=== PATIENT | female | born 1960 | race Caucasian/White ===

== ENCOUNTER 2016-07-01 20:57 | Emergency (ER) | payer BC ==
--- NOTE | 2016-07-01 22:00 | EDM.PDOC ---
ED HPI GENERAL MEDICAL PROBLEM - General Chief Complaint: General Stated Complaint: BLOOD PRESSURE Time Seen by Provider: 07/01/16 21:44 Source of Information: Reports: Patient, RN notes reviewed History Limitations: Reports: No limitations - History of Present Illness INITIAL COMMENTS - FREE TEXT/NARRATIVE: 56-year-old female presents emergency department today concerned about blood pressure her blood pressure was systolically 170 at home at which time she felt dizzy lightheaded did not feel well reports the emergency department for further evaluation at this time her blood pressure has returned to normal range in all of her symptoms have resolved Generalized Pain Score (Numeric/FACES): 4 - Related Data Allergies Allergy/AdvReac Type Severity Reaction Status Date / Time cyclobenzaprine Allergy Anxiety Verified 07/01/16 21:15 [From Flexeril] Iodinated Contrast Media - Allergy Airway Verified 07/01/16 21:14 Oral and Tightness [Iodinated Contrast Media - IV Dye] Home Meds: Home Meds Albuterol Sulfate [Proair Hfa] 2 puff INH Q4H PRN 07/01/16 [History] Aspirin [Adult Low Dose Aspirin EC] 81 mg PO DAILY 07/01/16 [History] Calcium Carbonate/Vitamin D3 [Calcium 600 + Vit D 200] 1 each PO DAILY 07/01/16 [History] Cholecalciferol (Vitamin D3) [Vitamin D3] 1,000 units PO DAILY 07/01/16 [History ] Fluticasone/Salmeterol [Advair Diskus 100-50] 1 puff INH DAILY 07/01/16 [History ] Gabapentin [Neurontin] 100 mg PO BID 07/01/16 [History] Gabapentin [Neurontin] 200 mg PO BEDTIME 07/01/16 [History] Magnesium Oxide 400 mg PO DAILY 07/01/16 [History] Multivitamin [Multi-Day Vitamins] 1 tab PO DAILY 07/01/16 [History] Naproxen [Naprosyn] 1 tab PO BID 07/01/16 [History] [place]-3/DHA/Epa/Fish Oil [Fish Oil 1,000 mg Softgel] 1 tab PO DAILY 07/01/16 [ History] Topiramate [Topamax] 100 mg PO BID 07/01/16 [History] Vit E Ac/Cu/Se/Znox/Pyg/Saw P [Prostamen Softgel] 1 each PO DAILY 07/01/16 [ History] traMADol HCl [Ultram] 50 mg PO Q6H PRN 07/01/16 [History] traMADol [Ultram] 1 tab PO Q6H 07/01/16 [History] Past Medical History HEENT History: Reports: Impaired vision Cardiovascular History: Reports: Hypertension 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 Musculoskeletal Surgical History: Reports: Hip replacement, Knee replacement, Other (see below) Other Musculoskeletal Surgeries/Procedures:: Total of 9 knee surgeries. Social & Family History - Tobacco Use Smoking Status *Q: Never Smoker Second Hand Smoke Exposure: No - Caffeine Use Caffeine Use: Reports: Coffee, Tea - Recreational Drug Use Recreational Drug Use: No ED ROS GENERAL - Review of Systems Review Of Systems: See Below Constitutional: Reports: no symptoms Respiratory: Reports: No Symptoms Cardiovascular: Reports: Chest pain GI/Abdominal: Reports: No symptoms : Reports: no symptoms Musculoskeletal: Reports: no symptoms Skin: Reports: no symptoms Neurological: Reports: Dizziness ED EXAM, GENERAL - Physical Exam Exam: See Below Free Text/Narrative:: General:female, not in any distress, alert and oriented x3 HEENT: head is atraumatic normocephalic, eyes pupils equal round reactive to light, sclera clear no conjunctivitis appreciated. Ears tympanic membranes clear and [place] landmarks and light reflex are present bilaterally canals are clear. Nose no septal deviation, nares are clear, no blood present. Mouth mucosa is moist and pink no erythema or exudate noted in soft palate, tongue is midline uvula is midline, dentition is intact. Neck: Supple no thyromegaly no tracheal deviation. Nodes: Cervical nodes subclavicular nodes nontender no palpable lymphadenopathy noted. Lungs: clear to auscultation bilaterally with symmetrical respirations, no adventitious noise appreciated. CV: Regular rate and rhythm S1 and S2 appreciated no murmurs rubs or gallops noted. Abdomen: Soft, nontender, no palpable masses or organomegaly appreciated, no distention no guarding bowel sounds are present, . Neuro: Cranial nerves II through XII grossly intact Skin: Warm and dry, intact Extremities: No lower extremity edema appreciated, Course - Vital Signs Last Recorded V/S: Last Vital Signs Temp 99.2 F 07/01/16 22:49 Pulse 114 H 07/01/16 22:49 Resp 16 07/01/16 22:49 BP 145/88 H 07/01/16 22:49 Pulse Ox 98 07/01/16 22:49 - Orders/Labs/Meds Orders: Active Orders 24 hr Category Date Time Status Cardiac Monitoring [RC] .As Directed Care 07/01/16 21:58 Active EKG Documentation Completion [RC] ASDIRECTED Care 07/01/16 21:44 Active Chest 2V [CR] Stat Exams 07/01/16 21:58 Taken EKG 12 Lead [EK] Stat Ther 07/01/16 21:44 Ordered Labs: Laboratory Tests 07/01/16 07/01/16 Range/Units 22:09 22:09 WBC 7.3 (4.5-11.0) K/uL RBC 4.32 (3.30-5.50) M/uL Hgb 12.7 (12.0-15.0) g/dL Hct 39.4 (36.0-48.0) % MCV 91 (80-98) fL MCH 29 (27-31) pg MCHC 32 (32-36) % Plt Count 326 (150-400) K/uL Neut % (Auto) 71 H (36-66) % Lymph % (Auto) 17 L (24-44) % [place] % (Auto) 9 H (2-6) % Eos % (Auto) 2 (2-4) % Baso % (Auto) 1 (0-1) % Sodium 145 (140-148) mmol/L Potassium 3.8 (3.6-5.2) mmol/L Chloride 107 (100-108) mmol/L Carbon Dioxide 24 (21-32) mmol/L Anion Gap 14.0 (5.0-14.0) mmol/L BUN 18 (7-18) mg/dL Creatinine 1.0 (0.6-1.0) mg/dL Est Cr Clr Drug Dosing 56.98 mL/min Estimated GFR (MDRD) 57 L (>60) Glucose 95 (74-106) mg/dL Calcium 8.9 (8.5-10.1) mg/dL Total Bilirubin 0.3 (0.2-1.0) mg/dL AST 22 (15-37) U/L ALT 29 (12-78) U/L Alkaline Phosphatase 94 (46-116) U/L CK-MB (CK-2) 1.5 (0-3.6) mg/mL Troponin I < 0.017 (0.000-0.056) ng/mL Total Protein 7.3 (6.4-8.2) g/dL Albumin 4.0 (3.4-5.0) g/dL Globulin 3.3 (2.3-3.5) g/dL Albumin/Globulin Ratio 1.2 (1.2-2.2) Departure - Departure Time of Disposition: 22:55 Disposition: DC/Tfer to Hospice - Home 50 Condition: good Clinical Impression: Hypertensive urgency Forms: ED Department Discharge Additional Instructions: Please followup with your primary care provider in 3 -5 days if not better, please call return to the emergency department with worsening of symptoms. - My Orders Last 24 Hours: My Active Orders 07/01/16 21:44 EKG Documentation Completion [RC] ASDIRECTED EKG 12 Lead [EK] Stat 07/01/16 21:58 Cardiac Monitoring [RC] .As Directed Chest 2V [CR] Stat - Assessment/Plan Last 24 Hours: My Active Orders 07/01/16 21:44 EKG Documentation Completion [RC] ASDIRECTED EKG 12 Lead [EK] Stat 07/01/16 21:58 Cardiac Monitoring [RC] .As Directed Chest 2V [CR] Stat Plan: Assessment Acuity = acute Site and laterality = hypertensive urgency Etiology = unclear etiology Manifestations = none Location of injury = home Lab values = CBC, CMP, troponin, EKG, chest x-ray are unremarkable Plan she has been asymptomatic here no treatment was provided did review lab work chest x-ray and EKG results with her her plans follow up with her primary care to 5 days if no improvement Patient was in agreement with the plan all questions were answered, they were instructed to return to the emergency department or call for worsening symptoms. This note was dictated using [employer] voice recognition software please call with any questions.
[2016-07-01 22:49] VITALS: BP 145/88
--- NOTE | 2016-07-02 09:23 | CR ---
Chest 2V INDICATION: Chest Pain FINDINGS: Comparison 11/04/2009. Heart size normal. Lungs are clear. Hypertrophic changes thoracic sp ine. Chest otherwise negative.
== END 2016-07-01 23:03 | disposition hospice, home (50) ==
LOC: JP.ED 20:57
DX: I10 Essential (primary) hypertension (principal); F32.9 Major depressive disorder, single episode, unspecified; Z79.82 Long term (current) use of aspirin; Z79.899 Other long term (current) drug therapy; Z96.659 Presence of unspecified artificial knee joint; Z96.649 Presence of unspecified artificial hip joint; Z98.890 Other specified postprocedural states
CPT/HCPCS: 36415; 71020; 71020-26; 80053; 82553; 84484; 85025; 93005; 99285-25

== ENCOUNTER 2018-05-23 13:16 | Emergency (ER) | payer BC ==
[2018-05-23] MEDS ORDERED: Sodium Chloride 0.9% 10 ML Syringe FLUSH PRN (13:18)
[2018-05-23] MEDS ORDERED: Lactated Ringers 1,000 ML IV ONE (13:35)
[2018-05-23] MEDS ORDERED: Ketorolac 30 MG/ML SDV IVPUSH ONE ×2 (13:38→13:39)
[2018-05-23] MEDS ORDERED: HYDROmorphone 0.5 MG/0.5 ML Syringe IVPUSH ONE (13:39)
--- NOTE | 2018-05-23 13:48 | EDM.PDOC ---
ED HPI GENERAL MEDICAL PROBLEM - General Chief Complaint: Lower Extremity Injury/Pain Stated Complaint: COMPLICATIONS FROM SURGERY Time Seen by Provider: 05/23/18 13:30 Source of Information: Reports: Patient, Old Records, Provider, RN History Limitations: Reports: No Limitations - History of Present Illness INITIAL COMMENTS - FREE TEXT/NARRATIVE: 57 yo female got out of a [facility] yesterday after R knee replacement. She had a low grade fever yesterday, then last night got much worse. She presented to the clinic today and was referred to the ER for knee pain and fever. She states she has recently developed some L sided pleuritic chest pain, but no SOB. No reported dysuria. Onset: Today Onset Date: 05/23/18 Onset Time: 00:15 Duration: Hour(s):, Getting Worse Location: Reports: Chest, Lower Extremity, Right, Generalized Quality: Reports: Ache (R knee), Sharp (L chest pain) Severity: Moderate Improves with: Reports: None Worsens with: Reports: Other (time) Context: Reports: Other (See HPI) Associated Symptoms: Reports: Chest Pain (pleuritic left), Fever/Chills. 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) Right Knee Pain Score (Numeric/FACES): 10 - Related Data Allergies Allergy/AdvReac Type Severity Reaction Status Date / Time cyclobenzaprine Allergy Anxiety Verified 07/01/16 21:15 [From Flexeril] Iodinated Contrast- Oral and Allergy Airway Verified 07/01/16 21:14 IV Dye Tightness [Iodinated Contrast Media - IV Dye] Home Meds: Home Meds Albuterol Sulfate [Proair Hfa] 2 puff INH Q4H PRN 07/01/16 [History] Aspirin [Adult Low Dose Aspirin EC] 81 mg PO DAILY 07/01/16 [History] Calcium Carbonate/Vitamin D3 [Calcium 600 + Vit D 200] 1 each PO DAILY 07/01/16 [History] Cholecalciferol (Vitamin D3) [Vitamin D3] 1,000 units PO DAILY 07/01/16 [History ] Fluticasone/Salmeterol [Advair Diskus 100-50] 1 puff INH DAILY 07/01/16 [History ] Gabapentin [Neurontin] 100 mg PO BID 07/01/16 [History] Gabapentin [Neurontin] 200 mg PO BEDTIME 07/01/16 [History] Magnesium Oxide 400 mg PO DAILY 07/01/16 [History] Multivitamin [Multi-Day Vitamins] 1 tab PO DAILY 07/01/16 [History] Naproxen [Naprosyn] 1 tab PO BID 07/01/16 [History] [place]-3/DHA/Epa/Fish Oil [Fish Oil 1,000 mg Softgel] 1 tab PO DAILY 07/01/16 [ History] Topiramate [Topamax] 100 mg PO BID 07/01/16 [History] Vit E/Cu/[place]/Zinc/[place]/Saw P [Prostamen Softgel] 1 each PO DAILY 07/01/16 [ History] traMADol HCl [Ultram] 50 mg PO Q6H PRN 07/01/16 [History] traMADol [Ultram] 1 tab PO Q6H 07/01/16 [History] Past Medical History HEENT History: Reports: Impaired Vision Cardiovascular History: Reports: Hypertension 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: Neurological History: Reports: Other (See Below) Other Neuro History: fibromyalgia Psychiatric History: Reports: Depression - Infectious Disease History Infectious Disease History: Reports: C-Difficile - Past Surgical History Endocrine Surgical History: Reports: Other (See Below) Musculoskeletal Surgical History: Reports: Hip Replacement, Knee Replacement, Other (See Below) Social & Family History - Caffeine Use Caffeine Use: Reports: Coffee, Tea Review of Systems - Review of Systems Review Of Systems: See Below Constitutional: Reports: Chills, Fever Eyes: Reports: No Symptoms Ears: Reports: No Symptoms Nose: Reports: No Symptoms Mouth/Throat: Reports: No Symptoms Respiratory: Reports: Pleuritic Chest Pain (left) Cardiovascular: Reports: Other (tachycardia) GI/Abdominal: Reports: No Symptoms Genitourinary: Reports: No Symptoms Musculoskeletal: Reports: No Symptoms Skin: Reports: No Symptoms Neurological: Reports: No Symptoms ED EXAM, GENERAL - Physical Exam Exam: See Below Exam Limited By: No Limitations General Appearance: Alert, WD/WN, Moderate Distress Eye Exam: Bilateral Eye: Normal Inspection Ears: Normal External Exam, Normal Canal, Hearing Grossly Normal Ear Exam: Bilateral Ear: Auricle Normal, Canal Normal Nose: Normal Inspection, No Blood Throat/Mouth: Normal Inspection, Normal Lips, Normal Oropharynx, Normal Voice, No Airway Compromise Head: Atraumatic, Normocephalic Neck: Normal Inspection Respiratory/Chest: Lungs Clear, Normal Breath Sounds, No Accessory Muscle Use, Other (tachypnea) Cardiovascular: Regular Rate, Rhythm, Tachycardia GI/Abdominal: Normal Bowel Sounds, Soft, Non-Tender, No Distention Back Exam: Normal Inspection Extremities: Other (surgical wound R knee, but no obvious increase in local warmth or redness.) Neurological: Alert, Oriented, CN II-XII Intact, Normal Cognition, No Motor/ Sensory Deficits Psychiatric: Normal Affect, Normal Mood Skin Exam: Warm, Dry, Intact, Normal Color, No Rash Lymphatic: No Adenopathy Course - Vital Signs Last Recorded V/S: Last Vital Signs Temp 39.4 C H 05/23/18 13:48 Pulse 125 H 05/23/18 13:48 Resp 24 H 05/23/18 13:48 BP 145/71 H 05/23/18 13:48 Pulse Ox 100 05/23/18 13:48 - Orders/Labs/Meds Orders: Active Orders 24 hr Category Date Time Status [place] Catheter Insertion [Insert Urinary Catheter] [OM. Care 05/23/18 14:15 Ordered PC] Q24H Urinary Catheter Assessment [RC] ASDIRECTED Care 05/23/18 14:15 Active CULTURE BLOOD [BC] Stat Lab 05/23/18 13:41 Received CULTURE BLOOD [BC] Stat Lab 05/23/18 13:41 Received Sodium Chloride 0.9% [Saline Flush] Med 05/23/18 13:18 Active 10 ml FLUSH ASDIRECTED PRN Vancomycin 1.5 gm Med 05/23/18 14:58 Active Sodium Chloride 0.9% [Normal Saline] 250 ml IV NOW cefOXitin [Mefoxin] 2 gm Med 05/23/18 14:58 Active Sodium Chloride 0.9% [Normal Saline] 50 ml IV ONETIME Saline Lock Insert [OM.PC] Routine Oth 05/23/18 13:18 Ordered Medication Orders Cefoxitin Sodium 2 gm/ Sodium (Chloride) 50 mls @ 100 mls/hr IV ONETIME ONE Stop: 05/23/18 15:27 Last Admin: 05/23/18 15:18 Dose: 100 mls/hr Vancomycin HCl 1.5 gm/ Sodium (Chloride) 250 mls @ 150 mls/hr IV NOW ONE Stop: 05/23/18 16:37 Sodium Chloride (Saline Flush) 10 ml FLUSH ASDIRECTED PRN PRN Reason: Keep Vein Open Last Admin: 05/23/18 14:07 Dose: 10 ml Labs: Laboratory Tests 05/23/18 05/23/18 05/23/18 Range/Units 13:41 13:41 13:41 WBC 14.9 H (4.5-11.0) K/uL RBC 4.25 (3.30-5.50) M/uL Hgb 12.4 (12.0-15.0) g/dL Hct 38.2 (36.0-48.0) % MCV 90 (80-98) fL MCH 29 (27-31) pg MCHC 33 (32-36) % Plt Count 312 (150-400) K/uL ESR 64 H (0-25) mm/hr Lactic Acid 3.0 H (0.4-2.0) mmol/L C-Reactive Protein 18.83 H (0.0-0.3) mg/dL Urine Color Urine Appearance Urine pH (4.5-8.0) Ur Specific [place] (1.008-1.030) Urine Protein (NEGATIVE) mg/dL Urine Glucose (UA) (NEGATIVE) mg/dL Urine Ketones (NEGATIVE) mg/dL Urine Occult Blood (NEGATIVE) Urine Nitrite (NEGATIVE) Urine Bilirubin (NEGATIVE) Urine Urobilinogen (NORMAL) mg/dL Ur Leukocyte Esterase (NEGATIVE) Urine RBC (0-5) Urine WBC (0-5) Ur Epithelial Cells Amorphous Sediment Urine Bacteria Urine Mucus 05/23/18 Range/Units 15:03 WBC (4.5-11.0) K/uL RBC (3.30-5.50) M/uL Hgb (12.0-15.0) g/dL Hct (36.0-48.0) % MCV (80-98) fL MCH (27-31) pg MCHC (32-36) % Plt Count (150-400) K/uL ESR (0-25) mm/hr Lactic Acid (0.4-2.0) mmol/L C-Reactive Protein (0.0-0.3) mg/dL Urine Color Yellow Urine Appearance Clear Urine pH 8.0 (4.5-8.0) Ur Specific [place] 1.005 L (1.008-1.030) Urine Protein Trace (NEGATIVE) mg/dL Urine Glucose (UA) Normal (NEGATIVE) mg/dL Urine Ketones 15 H (NEGATIVE) mg/dL Urine Occult Blood Negative (NEGATIVE) Urine Nitrite Negative (NEGATIVE) Urine Bilirubin Negative (NEGATIVE) Urine Urobilinogen Normal (NORMAL) mg/dL Ur Leukocyte Esterase Negative (NEGATIVE) Urine RBC 0-5 (0-5) Urine WBC 0-5 (0-5) Ur Epithelial Cells Rare Amorphous Sediment Not seen Urine Bacteria Rare Urine Mucus Not seen Meds: Medications Generic Name Dose Route Start Last Admin Trade Name Freq PRN Reason Stop Dose Admin Cefoxitin Sodium 2 gm/ Sodium 50 mls @ 100 mls/hr 05/23/18 14:58 05/23/18 15: 18 Chloride IV 05/23/18 15:27 100 mls/hr ONETIME ONE Administration Vancomycin HCl 1.5 gm/ Sodium 250 mls @ 150 mls/hr 05/23/18 14:58 Chloride IV 05/23/18 16:37 NOW ONE Sodium Chloride 10 ml 05/23/18 13:18 05/23/18 14:07 Saline Flush FLUSH 10 ml ASDIRECTED PRN Administration Keep Vein Open Discontinued Medications Generic Name Dose Route Start Last Admin Trade Name Freq PRN Reason Stop Dose Admin Hydromorphone HCl 0.5 mg 05/23/18 13:39 05/23/18 13:42 Dilaudid IVPUSH 05/23/18 13:40 0.5 mg ONETIME ONE Administration Lactated Ringer's 1,000 mls @ 1,000 mls/hr 05/23/18 13:35 05/23/18 13:47 Ringers, Lactated IV 05/23/18 14:34 1,000 mls/hr BOLUS ONE Administration Sodium Chloride 500 mls @ 1,000 mls/hr 05/23/18 14:12 05/23/18 15:12 Normal Saline IV 05/23/18 14:41 1,000 mls/hr .BOLUS ONE Administration Ketorolac Tromethamine 30 mg 05/23/18 13:38 Toradol IVPUSH 05/23/18 13:39 ONETIME ONE Ketorolac Tromethamine 30 mg 05/23/18 13:39 05/23/18 13:44 Toradol IVPUSH 05/23/18 13:40 30 mg ONETIME ONE Administration - Radiology Interpretation Free Text/Narrative:: CXR-neg Departure - Departure Time of Disposition: 15:40 Disposition: DC/Tfer to Acute Hospital 02 Condition: Serious Clinical Impression: History of arthroplasty of knee Sepsis Qualifiers: Sepsis type: sepsis due to unspecified organism Qualified Code(s): A41.9 - Sepsis, unspecified organism - Discharge Information *PRESCRIPTION DRUG MONITORING PROGRAM REVIEWED*: Not Applicable *COPY OF PRESCRIPTION DRUG MONITORING REPORT IN PATIENT RONAL: Not Applicable Referrals: Dolly Shipley PA-C [Primary Care Provider] - Forms: ED Department Discharge - My Orders Last 24 Hours: My Active Orders 05/23/18 13:18 Sodium Chloride 0.9% [Saline Flush] 10 ml FLUSH ASDIRECTED PRN Saline Lock Insert [OM.PC] Routine 05/23/18 13:41 CULTURE BLOOD [BC] Stat CULTURE BLOOD [BC] Stat 05/23/18 14:15 Gambino Catheter Insertion [Insert Urinary Catheter] [OM.PC] Q24H Urinary Catheter Assessment [RC] ASDIRECTED 05/23/18 14:58 Vancomycin 1.5 gm Sodium Chloride 0.9% [Normal Saline] 250 ml IV NOW cefOXitin [Mefoxin] 2 gm Sodium Chloride 0.9% [Normal Saline] 50 ml IV ONETIME - Assessment/Plan Last 24 Hours: My Active Orders 05/23/18 13:18 Sodium Chloride 0.9% [Saline Flush] 10 ml FLUSH ASDIRECTED PRN Saline Lock Insert [OM.PC] Routine 05/23/18 13:41 CULTURE BLOOD [BC] Stat CULTURE BLOOD [BC] Stat 05/23/18 14:15 [place]ino Catheter Insertion [Insert Urinary Catheter] [OM.PC] Q24H Urinary Catheter Assessment [RC] ASDIRECTED 05/23/18 14:58 Vancomycin 1.5 gm Sodium Chloride 0.9% [Normal Saline] 250 ml IV NOW cefOXitin [Mefoxin] 2 gm Sodium Chloride 0.9% [Normal Saline] 50 ml IV ONETIME
[2018-05-23] MEDS ORDERED: Sodium Chloride 0.9% 500 ML IV ONE (14:12)
[2018-05-23] MEDS ORDERED: cefOXitin 2 GM in Sodium Chloride 0.9% 50 ML IV ONE ×2 (14:14→14:58)
--- NOTE | 2018-05-23 14:35 | CRLCR ---
INDICATION: Fever and left-sided pleuritic chest pain. TECHNIQUE: Chest 1 views COMPARISON: July 01, 2016 FINDINGS: Cardiovascular and mediastinum: Heart size and vasculature are normal in caliber and appearance. Lungs and pleural spaces: Lungs are clear. No sign of infiltrate or mass. No sign of pleural effusion. No pneumothorax. Bones and soft tissues: No significant findings. IMPRESSION: No acute findings and no significant changes from the prior exam. No finding to explain fever or chest pain. Dictated by Santiago Dove MD @ May 23 2018 2:33PM Signed by Dr. Santiago Dove @ May 23 2018 2:34PM
[2018-05-23 15:32] VITALS: BP 131/65
== END 2018-05-23 16:20 ==
LOC: JP.ED 13:16
DX: A41.9 Sepsis, unspecified organism (principal); I10 Essential (primary) hypertension; F32.9 Major depressive disorder, single episode, unspecified; Z79.82 Long term (current) use of aspirin; Z96.651 Presence of right artificial knee joint; Z96.649 Presence of unspecified artificial hip joint; Z79.899 Other long term (current) drug therapy; Z88.8 Allergy status to other drugs, medicaments and biological substances; Z91.041 Radiographic dye allergy status
CPT/HCPCS: 36415; 51702; 71045; 81001; 83605; 85027; 85651; 86140; 87040; 99284; J0694; J1170; J1885; J3370; J7040; J7050; J7120